=== PATIENT | female | born 1965 | race Caucasian/White ===

== ENCOUNTER 2016-11-13 16:58 | Emergency (ER) | payer BC ==
[~2016-11-13] VITALS: Ht 162.6 cm; Wt 90.4 kg
[~2016-11-13 16:58] MED LIST: ASPIR-LOW81 MG PO; CEFDINIR300 MG PO; CIPRO500 MG PO; LISINOPRIL-HCT1 EACH PO; MULTIVITAMIN PO; NAPROSYN500 MG PO; OSTEO BI-FLEX1 EAC3 PO; PYRIDIUM100 MG PO; ST. JOSEPH ASPI81 MG PO; VITAMIN D PO; Vitamin C PO; Vitamin E PO; ZANTAC150 MG PO; ZOFRAN ODT4 MG PO; b complex PO
[2016-11-13 18:05] LABS: HEMATOCRIT 33.4 % (36.0-46.0); MCH 30.4 PG (29.0-34.0); MCHC 34.7 G/DL (30.0-36.0); MCV 87.7 FL (83-99); MEAN PLAT.VOLUME 9.7 uM^3 (9.5-12.4); PLATELET COUNT 256 K/uL (156-360); RBC DIS.WIDTH-CV 12.2 % (11.8-14.6); RBC DIS.WIDTH-SD 39.7 % (39-53); RED BLOOD COUNT 3.81 M/uL (3.80-5.20); WHITE BLOOD COUNT 7.3 K/uL (4.1-10.2)
[2016-11-13 18:14] LABS: CHLORIDE 104 mEq/L (99-109); POTASSIUM 3.7 mEq/L (3.7-5.4); SODIUM 137 mEq/L (136-147)
[2016-11-13 18:16] LABS: GLUCOSE 104 mg/dL (70-99)
[2016-11-13 18:18] LABS: ANION GAP 12 MEQ/L (2-14)
[2016-11-13 18:20] LABS: GFR ESTIMATE (CALCULATED) > 59 mL/min/
[2016-11-13 18:21] LABS: UREA NITROGEN (BUN) 21 mg/dL (9-23)
[2016-11-13 18:28] LABS: TROP-I INTERPRETATION NEGATIVE; TROPONIN-I < 0.01 ng/mL (0.0-0.30)
[2016-11-13 18:42] LABS: D-DIMER ELISA 0.24 mg/L FEU (< 0.57)
[2016-11-13 19:01] VITALS: BP 183/80
== END 2016-11-13 19:02 | disposition home or self-care (01) ==
LOC: EME 16:58
DX: R07.9 Chest pain, unspecified (principal); F41.9 Anxiety disorder, unspecified; I10 Essential (primary) hypertension; Z79.82 Long term (current) use of aspirin
CPT/HCPCS: 71020; 80048; 84484; 85027; 85379; 93005; 99281; 99284